=== PATIENT | female | born 1990 | race African-American/Black ===

== ENCOUNTER 2016-11-05 04:59 | Emergency (ER) | payer OTHER, MEDICAID ==
[~2016-11-05] VITALS: Ht 160 cm; Wt 61.0 kg
[2016-11-05 05:01] VITALS: BP 162/82; PULSE 75; RESP 16; TEMP 98.3; O2SAT 100
--- NOTE | 2016-11-05 05:24 | PD ---
HPI Chief Complaint: Chest Pain Time Seen by Provider: 05:11 Travel History International Travel<30 days: No Contact w/Intl Traveler<30days: No Traveled to known affect area: No History of Present Illness HPI To 26 year-old woman who presents to the emergency department complaining of left-sided chest pain. She describes soreness and also her chest, worse when she takes a deep breath, starting tonight while she was sitting down. She states that she's had similar pain several times in the past. She was younger, but has not had it for some time. Previous workups of been negative for it. She otherwise has been feeling generally well. She's not been sick with cough or cold symptoms. She has not on control pills, no recent travel, no history of DVT or PE. She denies any family history of heart disease at a young age. No past medical history. No other complaints. History Past Medical History Medical History: Denies Significant Hx Tetanus Vaccination: Unknown Influenza Vaccination: No LMP: CURRENT Past Surgical History Surgical History: No Previous Surgery Social History Alcohol Use: No Tobacco Use: No Allergies-Medications (Allergen,Severity, Reaction): Coded Allergies: No Known Allergies (Unverified , 11/05/16) Reported Meds & Prescriptions Reported Meds & Active Scripts Active No Active Prescriptions or Reported Medications Review of Systems Except as stated in HPI: all other systems reviewed are Neg Physical Exam Narrative GENERAL: Well-appearing 18 year-old woman, no acute distress. SKIN: Focused skin assessment warm/dry. HEAD: Atraumatic. Normocephalic. CARDIOVASCULAR: Regular rate and rhythm. No murmur appreciated. RESPIRATORY: No accessory muscle use. Clear to auscultation. Breath sounds equal bilaterally. GASTROINTESTINAL: Abdomen soft, non-tender, nondistended. Hepatic and splenic margins not palpable. MUSCULOSKELETAL: No obvious deformities. No clubbing. No cyanosis. No edema. NEUROLOGICAL: Awake and alert. No obvious cranial nerve deficits. Motor grossly within normal limits. Normal speech. PSYCHIATRIC: Appropriate mood and affect; insight and judgment normal. Data Data Last Documented VS Vital Signs Date Time Temp Pulse Resp B/P Pulse Ox O2 Delivery O2 Flow Rate FiO2 11/05/16 06:29 70 18 125/78 100 Room Air 11/05/16 05:01 98.3 Orders Electrocardiogram (11/05/16 05:17) Complete Blood Count With Diff (11/05/16 05:17) Comprehensive Metabolic Panel (11/05/16 05:17) Troponin I (11/05/16 05:17) Ecg Monitoring (11/05/16 05:17) Iv Access Insert/Monitor (11/05/16 05:17) Oximetry (11/05/16 05:17) Oxygen Administration (11/05/16 05:17) Sodium Chloride 0.9% Flush (Ns Flush) (11/05/16 05:30) Chest, Pa & Lat (11/05/16 05:17) Beta Hcg (Quant/Titer) (11/05/16 05:17) Ibuprofen (Motrin) (11/05/16 05:30) Acetaminophen (Tylenol) (11/05/16 05:30) Labs Laboratory Tests Test 11/05/16 05:35 White Blood Count 9.2 TH/MM3 Red Blood Count 3.51 MIL/MM3 Hemoglobin 9.4 GM/DL Hematocrit 29.1 % Mean Corpuscular Volume 82.8 FL Mean Corpuscular Hemoglobin 26.9 PG Mean Corpuscular Hemoglobin 32.4 % Concent Red Cell Distribution Width 18.5 % Platelet Count 387 TH/MM3 Mean Platelet Volume 8.6 FL Neutrophils (%) (Auto) 46.9 % Lymphocytes (%) (Auto) 41.1 % Monocytes (%) (Auto) 10.3 % Eosinophils (%) (Auto) 0.6 % Basophils (%) (Auto) 1.1 % Neutrophils # (Auto) 4.3 TH/MM3 Lymphocytes # (Auto) 3.8 TH/MM3 Monocytes # (Auto) 0.9 TH/MM3 Eosinophils # (Auto) 0.1 TH/MM3 Basophils # (Auto) 0.1 TH/MM3 CBC Comment DIFF FINAL Differential Comment Sodium Level 139 MEQ/L Potassium Level 3.3 MEQ/L Chloride Level 108 MEQ/L Carbon Dioxide Level 23.6 MEQ/L Anion Gap 7 MEQ/L Blood Urea Nitrogen 7 MG/DL Creatinine 0.68 MG/DL Estimat Glomerular Filtration 125 ML/MIN Rate Random Glucose 90 MG/DL Calcium Level 8.5 MG/DL Total Bilirubin 0.3 MG/DL Aspartate Amino Transf 12 U/L (AST/SGOT) Alanine Aminotransferase 15 U/L (ALT/SGPT) Alkaline Phosphatase 61 U/L Troponin I LESS THAN 0.02 NG/ML Total Protein 7.4 GM/DL Albumin 3.7 GM/DL Human Chorionic Gonadotropin, LESS THAN 1 Quant MIU/ML MDM Medical Decision Making Medical Screen Exam Complete: Yes Emergency Medical Condition: Yes Interpretation(s) My review of EKG: Normal sinus rhythm at a rate of 68, normal axis, normal intervals, no acute ischemia. Chest x-ray: No acute cardiopulmonary disease. LABS: CBC remarkable for hemoglobin 9.4. CMP is unremarkable. Troponins negative. HCG is negative. Differential Diagnosis Anxiety, chest wall pain, strain or sprain, PE, ACS, GI, other Narrative Course Medical decision-making 18 year-old woman presents to the emergency Department with left-sided chest pain. Looks well. This is likely musculoskeletal. She may have some component of anxiety. She states she's had similar pains in the past. No recent URI symptoms to suggest pleurisy. Low risk for PE. PERC Negative. No further workup. Recommend x-ray EKG and labs. NSAIDs for pain. Diagnosis Primary Impression: Chest pain Additional Instructions: Take ibuprofen and acetaminophen as needed for pain. Return to the emergency department for any worsening chest pain, trouble breathing, or any other new or worsening symptoms. Med/Other Pt SpecificInfo: No Change to Meds Scripts No Active Prescriptions or Reported Meds Disposition: 01 DISCHARGE HOME Condition: Stable Kenrick Duckworth MD Nov 05, 2016 05:24
[2016-11-05] MEDS ORDERED: SODIUM CHLORIDE 0.9% FLUSH 10 ML FLUSH IVF PRN (05:30)
[2016-11-05] MEDS ORDERED: ACETAMINOPHEN 500 MG CPLT PO ONE (05:30)
[2016-11-05] MEDS ORDERED: IBUPROFEN 400 MG TAB PO ONE (05:30)
--- NOTE | 2016-11-05 05:35 | RADRPT ---
EXAM DATE/TIME: 11/05/2016 05:28 [facility] COMPARISON: No previous studies available for comparison. INDICATIONS : Chest pain. MEDICAL HISTORY : None. SURGICAL HISTORY : None. ENCOUNTER: Initial ACUITY: 1 day PAIN SCORE: 7/10 LOCATION: Bilateral chest FINDINGS: PA and lateral views of the chest. The lungs are clear. Cardiomediastinal silhouette within normal li mits. No evidence of pleural effusion or pneumothorax. CONCLUSION: No acute cardiopulmonary disease identified. Rafal Cheema MD on November 05, 2016 at 5:32 Board Certified Radiologist. This report was verified electronically.
[2016-11-05 05:50] LABS: AUTOMATED NEUTROPHIL # 4.3 TH/MM3 (1.8-7.7); BASOPHIL # 0.1 TH/MM3 (0-0.2); BASOPHIL % 1.1 % (0.0-2.0); EOSINOPHIL # 0.1 TH/MM3 (0-0.4); EOSINOPHIL % 0.6 % (0.0-4.0); HEMATOCRIT 29.1 % (35.0-46.0); HEMO FLAGS DIFF FINAL; LYMPH % 41.1 % (9.0-44.0); LYMPHOCYTE # 3.8 TH/MM3 (1.0-4.8); MEAN CELL VOLUME 82.8 FL (80.0-100.0); MEAN CORPUSCULAR HEMOGLOBIN 26.9 PG (27.0-34.0); MEAN CORPUSCULAR HGB CONC 32.4 % (32.0-36.0); MONO % 10.3 % (0.0-8.0); NEUT % 46.9 % (16.0-70.0); PLATELET COUNT 387 TH/MM3 (150-450); RED BLOOD COUNT 3.51 MIL/MM3 (4.00-5.30); RED CELL DISTRIBUTION WIDTH 18.5 % (11.6-17.2); WHITE BLOOD COUNT 9.2 TH/MM3 (4.0-11.0)
[2016-11-05 05:51] VITALS: BP 136/82; PULSE 63; RESP 18; O2SAT 100
[2016-11-05 06:25] LABS: ANION GAP 7 MEQ/L (5-15); AST (GOT) 12 U/L (15-37); BICARBONATE 23.6 MEQ/L (21.0-32.0); BLOOD UREA NITROGEN 7 MG/DL (7-18); CHLORIDE 108 MEQ/L (98-107); GLOMERULAR FILTRATION RATE 125 ML/MIN (>89); POTASSIUM 3.3 MEQ/L (3.5-5.1); SODIUM (NA) 139 MEQ/L (136-145)
[2016-11-05 06:26] LABS: ALT (GPT) 15 U/L (10-53)
[2016-11-05 06:29] VITALS: BP 125/78; PULSE 70; RESP 18; O2SAT 100
[2016-11-05 06:30] LABS: ALKALINE PHOSPHATASE 61 U/L (45-117); BETA HCG QUANT LESS THAN 1 MIU/ML (0-5); TOTAL BILIRUBIN ADULT 0.3 MG/DL (0.2-1.0)
--- NOTE | 2016-11-05 08:29 | EKG ---
Date Performed: 11/05/2016 Time Performed: 05:36:38 PTAGE: 26 years EKG: Sinus rhythm NONSPECIFIC T-WAVE ABNORMALITY BORDERLINE ECG NO PREVIOUS TRACING DOCTOR: John Cortez Interpretating Date/Time 11/05/2016 08:27:37
== END 2016-11-05 06:49 | disposition home or self-care (01) ==
LOC: NEPC 04:59
DX: R07.9 Chest pain, unspecified (principal)
CPT/HCPCS: 71020; 80053; 84484; 84702; 85025; 93005

== ENCOUNTER 2017-01-26 14:29 | Emergency (ER) | payer MEDICAID, OTHER ==
[~2017-01-26] VITALS: Ht 157.5 cm; Wt 59.0 kg
[2017-01-26] MEDS ORDERED: IOHEXOL 350 MG/ML 10 ML VIAL (for RAD DIAG) IVCONTRAST ONE (14:30)
[2017-01-26 14:31] VITALS: BP 134/86; PULSE 75; RESP 18; TEMP 98.5; O2SAT 98
[2017-01-26] MEDS ORDERED: SODIUM CHLOR 0.9% 1000 ML INJ 1,000 ML IV SCH (15:28)
[2017-01-26] MEDS ORDERED: ONDANSETRON HCL 4 MG/2 ML VIAL IVP ONE (15:30)
[2017-01-26] MEDS ORDERED: HYDROmorphone HCL PF 1 MG/ML VIAL IVS ONE (15:30)
[2017-01-26] MEDS ORDERED: SODIUM CHLORIDE 0.9% FLUSH 10 ML FLUSH IV FLUSH PRN (15:30)
--- NOTE | 2017-01-26 15:35 | PD ---
HPI Chief Complaint: Abdominal Pain Time Seen by Provider: 15:28 Travel History International Travel<30 days: No Contact w/Intl Traveler<30days: No Traveled to known affect area: No History of Present Illness HPI 26 yo F c/o RLQ pain sudden onset four days ago with intermittent pain since then. Crampy pain reported. Anorexia reported. No vomiting. No Fever. No vd/vb. No similar priors. Initially pain was severe and now is more tolerable. LMP 2 weeks prior. PFSH Past Medical History Diminished Hearing: No ?: Not LMP: 12/2016 Social History Alcohol Use: No Tobacco Use: No Substance Use: No Allergies-Medications (Allergen,Severity, Reaction): Coded Allergies: No Known Allergies (Unverified , 01/26/17) Reported Meds & Prescriptions Reported Meds & Active Scripts Active No Active Prescriptions or Reported Medications Review of Systems Except as stated in HPI: all other systems reviewed are Neg Physical Exam Narrative GENERAL: 26 yo F, WNWD, mild distress SKIN: Warm and dry. HEAD: Atraumatic. Normocephalic. EYES: Pupils equal and round. No scleral icterus. No injection or drainage. ENT: No nasal bleeding or discharge. Mucous membranes pink and moist. NECK: Trachea midline. No JVD. CARDIOVASCULAR: Regular rate and rhythm. RESPIRATORY: No accessory muscle use. Clear to auscultation. Breath sounds equal bilaterally. GASTROINTESTINAL: Soft. Minimal TTP RLQ. No rebound. MUSCULOSKELETAL: Extremities without clubbing, cyanosis, or edema. No obvious deformities. NEUROLOGICAL: Awake and alert. No obvious cranial nerve deficits. Motor grossly within normal limits. Five out of 5 muscle strength in the arms and legs. Normal speech. PSYCHIATRIC: Appropriate mood and affect; insight and judgment normal. Data Data Last Documented VS Vital Signs Date Time Temp Pulse Resp B/P (MAP) Pulse Ox O2 Delivery O2 Flow Rate FiO2 01/26/17 16:35 100 01/26/17 14:31 98.5 75 18 Room Air VS reviewed Orders Orders Complete Blood Count With Diff (01/26/17 15:28) Comprehensive Metabolic Panel (01/26/17 15:28) Lipase (01/26/17 15:28) Urinalysis - C+S If Indicated (01/26/17 15:28) Iv Access Insert/Monitor (01/26/17 15:28) Ecg Monitoring (01/26/17 15:28) Oximetry (01/26/17 15:28) Ondansetron Inj (Zofran Inj) (01/26/17 15:30) Sodium Chlor 0.9% 1000 Ml Inj (Ns 1000 M (01/26/17 15:28) Sodium Chloride 0.9% Flush (Ns Flush) (01/26/17 15:30) Hydromorphone Pf Inj (Dilaudid Pf Inj) (01/26/17 15:30) Ed Urine Pregnancytest Poc (01/26/17 15:28) Ct Abd/Pel W Iv Contrast(Rout) (01/26/17 ) Morphine Inj (Morphine Inj) (01/26/17 16:30) Pantoprazole Inj (Protonix Inj) (01/26/17 16:30) Famotidine Inj (Pepcid Inj) (01/26/17 16:30) Al-Mag Hy-Si 40-40-4 Mg/Ml Liq (Mag-Al P (01/26/17 16:30) Lidocaine 2% Viscous (Xylocaine 2% Visco (01/26/17 16:30) Urine Culture (01/26/17 16:05) Labs Laboratory Tests Test 01/26/17 16:05 01/26/17 16:20 Urine Color YELLOW Urine Turbidity HAZY Urine pH 5.5 Urine Specific [place] 1.026 Urine Protein TRACE mg/dL Urine Glucose (UA) NEG mg/dL Urine Ketones 10 mg/dL Urine Occult Blood NEG Urine Nitrite NEG Urine Bilirubin NEG Urine Urobilinogen LESS THAN 2.0 MG/DL Urine Leukocyte Esterase LARGE Urine RBC 4 /hpf Urine WBC 22 /hpf Urine Squamous Epithelial Cells 4 /hpf Urine Amorphous Sediment RARE Urine Mucus MOD /lpf Microscopic Urinalysis Comment CULTURE INDICATED White Blood Count 8.1 TH/MM3 Red Blood Count 4.20 MIL/MM3 Hemoglobin 11.2 GM/DL Hematocrit 34.9 % Mean Corpuscular Volume 83.2 FL Mean Corpuscular Hemoglobin 26.8 PG Mean Corpuscular Hemoglobin Concent 32.2 % Red Cell Distribution Width 20.6 % Platelet Count 385 TH/MM3 Mean Platelet Volume 8.6 FL Neutrophils (%) (Auto) 38.6 % Lymphocytes (%) (Auto) 48.8 % Monocytes (%) (Auto) 10.8 % Eosinophils (%) (Auto) 0.9 % Basophils (%) (Auto) 0.9 % Neutrophils # (Auto) 3.1 TH/MM3 Lymphocytes # (Auto) 3.9 TH/MM3 Monocytes # (Auto) 0.9 TH/MM3 Eosinophils # (Auto) 0.1 TH/MM3 Basophils # (Auto) 0.1 TH/MM3 CBC Comment DIFF FINAL Differential Comment MDM Medical Decision Making Medical Screen Exam Complete: Yes Emergency Medical Condition: Yes Medical Record Reviewed: Yes Differential Diagnosis Constipation, Gastritis, Acute Cholecystitis, Biliary Colic, Pancreatitis, CHACON , Hepatitis, Bowel Obstruction, Cystitis, Mesenteric Ischemia, AAA, Appendicitis , Renal Stone/Hydronephrosis, GERD, perforated viscous Narrative Course Pt to be followed by provider in medical pod. Scripts No Active Prescriptions or Reported Meds Disposition: 01 DISCHARGE HOME Condition: Stable Valentín Michel MD Jan 26, 2017 15:35
[2017-01-26] MEDS ORDERED: ALUMINUM/MAGNESIUM/SIMETH 30 ML CUP PO ONE (16:30)
[2017-01-26] MEDS ORDERED: FAMOTIDINE 20 MG/2 ML VIAL IV PUSH ONE (16:30)
[2017-01-26] MEDS ORDERED: LIDOCAINE VISCOUS 2% SOLN 15 ML UDC PO ONE (16:30)
[2017-01-26] MEDS ORDERED: MORPHINE SULFATE 4 MG/ML INJ IV PUSH ONE (16:30)
[2017-01-26] MEDS ORDERED: PANTOPRAZOLE SODIUM 40 MG VIAL IV PUSH ONE (16:30)
[2017-01-26 16:35] VITALS: O2SAT 100
[2017-01-26 16:39] LABS: AUTOMATED NEUTROPHIL # 3.1 TH/MM3 (1.8-7.7); BASOPHIL # 0.1 TH/MM3 (0-0.2); BASOPHIL % 0.9 % (0.0-2.0); EOSINOPHIL # 0.1 TH/MM3 (0-0.4); EOSINOPHIL % 0.9 % (0.0-4.0); HEMATOCRIT 34.9 % (35.0-46.0); HEMO FLAGS DIFF FINAL; LYMPH % 48.8 % (9.0-44.0); LYMPHOCYTE # 3.9 TH/MM3 (1.0-4.8); MEAN CELL VOLUME 83.2 FL (80.0-100.0); MEAN CORPUSCULAR HEMOGLOBIN 26.8 PG (27.0-34.0); MEAN CORPUSCULAR HGB CONC 32.2 % (32.0-36.0); MONO % 10.8 % (0.0-8.0); NEUT % 38.6 % (16.0-70.0); PLATELET COUNT 385 TH/MM3 (150-450); RED CELL DISTRIBUTION WIDTH 20.6 % (11.6-17.2); WHITE BLOOD COUNT 8.1 TH/MM3 (4.0-11.0)
[2017-01-26 16:48] LABS: BLOOD, URINE NEG (NEG); COMMENT (UR) CULTURE INDICATED; CULTURE IF INDICATED CULTURE INDICATED; GLUCOSE,URINE NEG (NEG); KETONE, URINE 10 mg/dL (NEG); MUCUS URINE MOD /lpf (OCC); NITRITE,URINE NEG (NEG); PH, URINE 5.5 (5.0-8.5); SQUAMOUS EPITHELIAL CELL URINE 4 /hpf (0-5); URINE COLOR YELLOW (YELLW/STRAW)
[2017-01-26 17:00] LABS: ANION GAP 9 MEQ/L (5-15); AST (GOT) 13 U/L (15-37); BICARBONATE 22.9 MEQ/L (21.0-32.0); BLOOD UREA NITROGEN 10 MG/DL (7-18); CHLORIDE 104 MEQ/L (98-107); GLOMERULAR FILTRATION RATE 129 ML/MIN (>89); SODIUM (NA) 136 MEQ/L (136-145)
--- NOTE | 2017-01-26 17:00 | PD ---
Physical Exam Date Seen by Provider: Jan 26, 2017 Time Seen by Provider: 16:59 Narrative 26-year-old female that presents to the ED for evaluation of epigastric pain as well as right lower quadrant pain. Patient was properly examined and was found to have signs and symptoms of unclear etiology at this time. Concerning for appendicitis as well as peptic ulcer disease. Case was initially evaluated by Dr. Joshi and case was signed out to me pending labs and imaging and disposition. Please refer to his note. On my examination patient does appear to have right lower quadrant pain as well was more severe epigastric abdominal pain. No obvious Prater sign noted. Otherwise unremarkable exam. Data Data Last Documented VS Vital Signs Date Time Temp Pulse Resp B/P (MAP) Pulse Ox O2 Delivery O2 Flow Rate FiO2 01/26/17 19:09 68 15 118/68 (85) 100 Room Air 01/26/17 14:31 98.5 Orders Orders Complete Blood Count With Diff (01/26/17 15:28) Comprehensive Metabolic Panel (01/26/17 15:28) Lipase (01/26/17 15:28) Urinalysis - C+S If Indicated (01/26/17 15:28) Iv Access Insert/Monitor (01/26/17 15:28) Ecg Monitoring (01/26/17 15:28) Oximetry (01/26/17 15:28) Ondansetron Inj (Zofran Inj) (01/26/17 15:30) Sodium Chlor 0.9% 1000 Ml Inj (Ns 1000 M (01/26/17 15:28) Sodium Chloride 0.9% Flush (Ns Flush) (01/26/17 15:30) Hydromorphone Pf Inj (Dilaudid Pf Inj) (01/26/17 15:30) Ed Urine Pregnancytest Poc (01/26/17 15:28) Ct Abd/Pel W Iv Contrast(Rout) (01/26/17 ) Morphine Inj (Morphine Inj) (01/26/17 16:30) Pantoprazole Inj (Protonix Inj) (01/26/17 16:30) Famotidine Inj (Pepcid Inj) (01/26/17 16:30) Al-Mag Hy-Si 40-40-4 Mg/Ml Liq (Mag-Al P (01/26/17 16:30) Lidocaine 2% Viscous (Xylocaine 2% Visco (01/26/17 16:30) Urine Culture (01/26/17 16:05) Iohexol 350 Inj (Omnipaque 350 Inj) (01/26/17 14:30) Ceftriaxone Inj (Rocephin Inj) (01/26/17 19:30) Labs Laboratory Tests Test 01/26/17 16:05 01/26/17 16:20 Urine Color YELLOW Urine Turbidity HAZY Urine pH 5.5 Urine Specific [place] 1.026 Urine Protein TRACE mg/dL Urine Glucose (UA) NEG mg/dL Urine Ketones 10 mg/dL Urine Occult Blood NEG Urine Nitrite NEG Urine Bilirubin NEG Urine Urobilinogen LESS THAN 2.0 MG/DL Urine Leukocyte Esterase LARGE Urine RBC 4 /hpf Urine WBC 22 /hpf Urine Squamous Epithelial Cells 4 /hpf Urine Amorphous Sediment RARE Urine Mucus MOD /lpf Microscopic Urinalysis Comment CULTURE INDICATED White Blood Count 8.1 TH/MM3 Red Blood Count 4.20 MIL/MM3 Hemoglobin 11.2 GM/DL Hematocrit 34.9 % Mean Corpuscular Volume 83.2 FL Mean Corpuscular Hemoglobin 26.8 PG Mean Corpuscular Hemoglobin Concent 32.2 % Red Cell Distribution Width 20.6 % Platelet Count 385 TH/MM3 Mean Platelet Volume 8.6 FL Neutrophils (%) (Auto) 38.6 % Lymphocytes (%) (Auto) 48.8 % Monocytes (%) (Auto) 10.8 % Eosinophils (%) (Auto) 0.9 % Basophils (%) (Auto) 0.9 % Neutrophils # (Auto) 3.1 TH/MM3 Lymphocytes # (Auto) 3.9 TH/MM3 Monocytes # (Auto) 0.9 TH/MM3 Eosinophils # (Auto) 0.1 TH/MM3 Basophils # (Auto) 0.1 TH/MM3 CBC Comment DIFF FINAL Differential Comment Blood Urea Nitrogen 10 MG/DL Creatinine 0.66 MG/DL Random Glucose 75 MG/DL Total Protein 8.1 GM/DL Albumin 3.9 GM/DL Calcium Level 8.7 MG/DL Alkaline Phosphatase 63 U/L Aspartate Amino Transf (AST/SGOT) 13 U/L Alanine Aminotransferase (ALT/SGPT) 14 U/L Total Bilirubin 0.3 MG/DL Sodium Level 136 MEQ/L Potassium Level 4.0 MEQ/L Chloride Level 104 MEQ/L Carbon Dioxide Level 22.9 MEQ/L Anion Gap 9 MEQ/L Estimat Glomerular Filtration Rate 129 ML/MIN Lipase 72 U/L [facility] Medical Record Reviewed: Yes Supervised Visit with XU: No Interpretation(s) CBC & BMP Diagram 01/26/17 16:20 Total Protein 8.1, Albumin 3.9, Calcium Level 8.7, Alkaline Phosphatase 63, Aspartate Amino Transf (AST/SGOT) 13 L, Alanine Aminotransferase (ALT/SGPT) 14, Total Bilirubin 0.3 CT abdomen showed a mass about 4 cm on the RLQ musculature felt by radiologist to be possible fibroma. Recomends US and possible biopsy if clinically indicated Lipase WNL UA shows UTI Differential Diagnosis Appendicitis versus peptic ulcer disease versus gastritis versus gallbladder disease versus obstruction versus UTI Narrative Course 26-year-old female that presents to the ED for evaluation of abdominal pain. Patient was initially seen by Dr. Joshi. Please refer to his note. Labs and imaging were ordered. Labs and imaging were essentially unremarkable other for UTI and what appears to be a small mass on the right lower quadrant. Was 4 cm. Case was discussed in my attending Dr León who was made aware of all findings and recommends outpatient follow-up for this mass if needed. Patient at this time does appear to have a UTI and what appears to be gastritis. She will be treated for this with Keflex, Zofran, Protonix, Zantac. Told that if anything worsens she is to come back. See ED if worsening symptoms. Diagnosis Primary Impression: Gastritis Qualified Codes: K29.00 - Acute gastritis without bleeding Additional Impression: RLQ abdominal mass Patient Instructions: General Instructions Additional Instruction: Take medications as prescribed. Drink plenty of fluids. See ED for any worsening symptoms. A follow-up with your primary care doctor for evaluation of this mass to the right lower quadrant. Med/Other Pt SpecificInfo: Prescription(s) given Scripts Cephalexin (Keflex) 500 Mg Cap 500 MG PO Q12H for Infection for 10 Days, #20 CAP 0 Refills Prov: Augusto Gutierrez MD 01/26/17 Ondansetron (Zofran) 4 Mg Tab 4 MG PO Q6HR Y for NAUSEA OR VOMITING, #15 TAB 0 Refills Prov: Augusto Gutierrez MD 01/26/17 Pantoprazole (Protonix) 40 Mg Tab 40 MG PO DAILY for Reflux, #20 TAB 0 Refills Prov: Augusto Gutierrez MD 01/26/17 Ranitidine (Zantac) 150 Mg Tab 150 MG PO BID for Reduce Stomach Acid, #20 TAB 0 Refills Prov: Augusto Gutierrez MD 01/26/17 Disposition: 01 DISCHARGE HOME Condition: Conrado Artis Jan 26, 2017 17:00
[2017-01-26 17:08] LABS: ALKALINE PHOSPHATASE 63 U/L (45-117); ALT (GPT) 14 U/L (10-53); TOTAL BILIRUBIN ADULT 0.3 MG/DL (0.2-1.0)
[2017-01-26 19:09] VITALS: BP 118/68; PULSE 68; RESP 15; O2SAT 100
--- NOTE | 2017-01-26 19:14 | RADRPT ---
EXAM DATE/TIME: 01/26/2017 18:43 [facility] COMPARISON: No previous studies available for comparison. INDICATIONS : Epigastric abdomen pain for four days. IV CONTRAST: 71 cc Omnipaque 350 (iohexol) IV ORAL CONTRAST: No oral contrast ingested. RADIATION DOSE: 9.96 CTDIvol (mGy) MEDICAL HISTORY : None SURGICAL HISTORY : None. ENCOUNTER: Initial ACUITY: 4 - 6 days PAIN SCALE: 7/10 LOCATION: Abdomen TECHNIQUE: Volumetric scanning of the abdomen and pelvis was performed. Using automated exposure control and ad justment of the mA and/or kV according to patient size, radiation dose was kept as low as reasonably achievable to obtain optimal diagnostic quality images. DICOM format image data is available electro nically for review and comparison. FINDINGS: LOWER LUNGS: The visualized lower lungs are clear. LIVER: Homogeneous density without lesion. There is no dilation of the biliary tree. No calcified gallston es. SPLEEN: Normal size without lesion. PANCREAS: Within normal limits. KIDNEYS: Normal in size and shape. There is no mass, stone or hydronephrosis. ADRENAL GLANDS: Within normal limits. VASCULAR: There is no aortic aneurysm. BOWEL/MESENTERY: The stomach, small bowel, and colon demonstrate no acute abnormality. There is no free intraperitone al air or fluid. ABDOMINAL WALL: There is a slightly less than 4 cm soft tissue density mass involving the right lower quadrant anteri or abdominal wall posteriorly abutting the anterior surface of the rectus abdominous musculature. RETROPERITONEUM: There is no lymphadenopathy. BLADDER: No wall thickening or mass. REPRODUCTIVE: Minimal dependent pelvic fluid. INGUINAL: Shotty inguinal nodes MUSCULOSKELETAL: Within normal limits for patient age. CONCLUSION: 4 cm or soft tissue density mass involving the right lower quadrant anterior abdominal wall. This may be a fibroma or other mesenchymal neoplasm. Sonography may be helpful for further characterization a nd may also be useful for guidance if biopsy is to be accomplished. Marcel Miles MD on January 26, 2017 at 19:07 Board Certified Radiologist. This report was verified electronically.
[2017-01-26] MEDS ORDERED: ZANT150T2 PO (19:23)
[2017-01-26] MEDS ORDERED: ZOFR4TAB PO (19:23)
[2017-01-26] MEDS ORDERED: PROT40TA PO (19:23)
[2017-01-26] MEDS ORDERED: CEPH-460 PO (19:24)
[2017-01-26] MEDS ORDERED: cefTRIAXone INJ 1,000 MG in SODIUM CHLORIDE 0.9% INJ 100 ML IV ONE (19:30)
== END 2017-01-26 20:31 | disposition home or self-care (01) ==
LOC: NEPC 14:29
DX: K29.00 Acute gastritis without bleeding (principal); R19.03 Right lower quadrant abdominal swelling, mass and lump
CPT/HCPCS: 74177; 80053; 81001; 83690; 84703; 85025; 87086; 96361; 96374; 96376; 99285; C9113; J0696; J7030; Q9967

== ENCOUNTER 2017-08-31 13:59 | Emergency (ER) | payer SELFPAY ==
[~2017-08-31] VITALS: Ht 157.5 cm; Wt 57.0 kg
[~2017-08-31 13:59] MED LIST: CEPH-460 PO; PROT40TA PO; ZANT150T2 PO; ZOFR4TAB PO
[2017-08-31 14:25] VITALS: BP 136/56; PULSE 81; RESP 17; TEMP 99; O2SAT 100
[2017-08-31] MEDS ORDERED: SODIUM CHLOR 0.9% 1000 ML INJ 1,000 ML IV SCH (16:04)
[2017-08-31] MEDS ORDERED: SODIUM CHLORIDE 0.9% FLUSH 10 ML FLUSH IV FLUSH PRN (16:15)
[2017-08-31] MEDS ORDERED: KETOROLAC TROMETHAMINE 30 MG/ML (IVP) VIAL IV PUSH ONE (16:30)
[2017-08-31 16:35] LABS: AUTOMATED NEUTROPHIL # 4.6 TH/MM3 (1.8-7.7); BASOPHIL % 0.6 % (0.0-2.0); EOSINOPHIL # 0.5 TH/MM3 (0-0.4); EOSINOPHIL % 5.4 % (0.0-4.0); HEMOGLOBIN 12.1 GM/DL (11.6-15.3); LYMPHOCYTE # 2.5 TH/MM3 (1.0-4.8); MEAN CELL VOLUME 89.2 FL (80.0-100.0); MEAN CORPUSCULAR HEMOGLOBIN 30.9 PG (27.0-34.0); MEAN CORPUSCULAR HGB CONC 34.7 % (32.0-36.0); MEAN PLATELET VOLUME 8.5 FL (7.0-11.0); MONOCYTE # 0.8 TH/MM3 (0-0.9); PLATELET COUNT 401 TH/MM3 (150-450); RED BLOOD COUNT 3.92 MIL/MM3 (4.00-5.30); RED CELL DISTRIBUTION WIDTH 18.9 % (11.6-17.2); WHITE BLOOD COUNT 8.4 TH/MM3 (4.0-11.0)
--- NOTE | 2017-08-31 16:42 | PD ---
HPI Chief Complaint: Abdominal Pain Time Seen by Provider: 16:03 Travel History International Travel<30 days: No Contact w/Intl Traveler<30days: No Traveled to known affect area: No History of Present Illness HPI 26-year-old female presents to the emergency department with complaint of right- sided abdominal pain 2 days. Says she normally gets right lower quadrant abdominal pain when she starts her menses and she is currently on her menses. Pain is to the right upper quadrant and right flank area. Denies nausea, vomiting, diarrhea, constipation. Denies fevers. Denies abnormal vaginal discharge, odor. Denies dysuria. Denies history of abdominal surgeries, other than in 2008. Rates pain 01/03. Pain comes and goes. Stabbing in nature when comes. Taken ibuprofen with little relief of pain. No known allergies. No primary care provider. No significant past medical history. Has no other medical complaints. No other modifying factors or associated signs and symptoms. PFSH Past Medical History Medical History: Denies Significant Hx Diminished Hearing: No Tetanus Vaccination: < 5 Years ?: Not LMP: 08/2017 Past Surgical History Section: Yes Social History Alcohol Use: No Tobacco Use: No Substance Use: No Allergies-Medications (Allergen,Severity, Reaction): Coded Allergies: No Known Allergies (Unverified Adverse Reaction, Unknown, 08/31/17) Reported Meds & Prescriptions Reported Meds & Active Scripts Active Ibuprofen 800 Mg Tab 800 Mg PO Q6HR PRN Keflex (Cephalexin) 500 Mg Cap 500 Mg PO Q12H 7 Days Review of Systems Except as stated in HPI: all other systems reviewed are Neg Physical Exam Narrative GENERAL: Well-nourished, well-developed black female patient, in no acute distress; afebrile, nontoxic-appearing SKIN: Warm and dry. HEAD: Atraumatic. Normocephalic. EYES: Pupils equal and round. No scleral icterus. No injection or drainage. ENT: Mucous membranes pink and moist. NECK: Trachea midline. No lymphadenopathy. CARDIOVASCULAR: Regular rate and rhythm. No murmur appreciated. RESPIRATORY: No accessory muscle use. Clear to auscultation. Breath sounds equal bilaterally. GASTROINTESTINAL: Abdomen soft, tenderness on palpation to right upper quadrant and right flank area, nondistended. Bilateral pelvic region nontender to palpation. Hepatic and splenic margins not palpable. No guarding, rigidity, rebound tenderness. PELVIC: Exam done in the presence of a nurse. Speculum exam reveals nonedematous and nonerythematous cervix with dark red, nonodorous discharge. Bimanual exam reveals no palpable masses or adnexa tenderness, no uterine tenderness. No cervical motion tenderness. BACK: No CVA tenderness. MUSCULOSKELETAL: No obvious deformities. No clubbing. No cyanosis. No edema. NEUROLOGICAL: Awake and alert. No obvious cranial nerve deficits. Motor grossly within normal limits. Normal speech. PSYCHIATRIC: Appropriate mood and affect; insight and judgment normal. Data Data Last Documented VS Vital Signs Date Time Temp Pulse Resp B/P (MAP) Pulse Ox O2 Delivery O2 Flow Rate FiO2 08/31/17 14:25 99.0 81 17 136/56 (82) 100 Orders Orders Complete Blood Count With Diff (08/31/17 16:04) Comprehensive Metabolic Panel (08/31/17 16:04) Lipase (08/31/17 16:04) Urinalysis - C+S If Indicated (08/31/17 16:04) Iv Access Insert/Monitor (08/31/17 16:04) Sodium Chlor 0.9% 1000 Ml Inj (Ns 1000 M (08/31/17 16:04) Sodium Chloride 0.9% Flush (Ns Flush) (08/31/17 16:15) Ed Urine Pregnancytest Poc (08/31/17 16:04) Ketorolac Inj (Toradol Inj) (08/31/17 16:30) Gc And Chlamydia Pcr (08/31/17 17:08) Wet Prep Profile (08/31/17 17:08) Urine Culture (08/31/17 17:20) Ceftriaxone Inj (Rocephin Inj) (08/31/17 19:00) Azithromycin Powd Pack (Zithromax Powd P (08/31/17 19:15) Ed Discharge Order (08/31/17 19:01) Metronidazole (Flagyl) (08/31/17 19:15) Labs Laboratory Tests Test 08/31/17 16:15 08/31/17 17:20 08/31/17 17:45 White Blood Count 8.4 TH/MM3 Red Blood Count 3.92 MIL/MM3 Hemoglobin 12.1 GM/DL Hematocrit 35.0 % Mean Corpuscular Volume 89.2 FL Mean Corpuscular Hemoglobin 30.9 PG Mean Corpuscular Hemoglobin Concent 34.7 % Red Cell Distribution Width 18.9 % Platelet Count 401 TH/MM3 Mean Platelet Volume 8.5 FL Neutrophils (%) (Auto) 55.0 % Lymphocytes (%) (Auto) 30.0 % Monocytes (%) (Auto) 9.0 % Eosinophils (%) (Auto) 5.4 % Basophils (%) (Auto) 0.6 % Neutrophils # (Auto) 4.6 TH/MM3 Lymphocytes # (Auto) 2.5 TH/MM3 Monocytes # (Auto) 0.8 TH/MM3 Eosinophils # (Auto) 0.5 TH/MM3 Basophils # (Auto) 0.0 TH/MM3 CBC Comment DIFF FINAL Differential Comment Blood Urea Nitrogen 12 MG/DL Creatinine 0.76 MG/DL Random Glucose 60 MG/DL Total Protein 7.8 GM/DL Albumin 3.5 GM/DL Calcium Level 8.1 MG/DL Alkaline Phosphatase 68 U/L Aspartate Amino Transf (AST/SGOT) 22 U/L Alanine Aminotransferase (ALT/SGPT) 18 U/L Total Bilirubin 0.3 MG/DL Sodium Level 140 MEQ/L Potassium Level 4.5 MEQ/L Chloride Level 109 MEQ/L Carbon Dioxide Level 25.1 MEQ/L Anion Gap 6 MEQ/L Estimat Glomerular Filtration Rate 110 ML/MIN Lipase 89 U/L Urine Color LIGHT-YELLOW Urine Turbidity HAZY Urine pH 6.5 Urine Specific [place] 1.020 Urine Protein NEG mg/dL Urine Glucose (UA) NEG mg/dL Urine Ketones NEG mg/dL Urine Occult Blood LARGE Urine Nitrite NEG Urine Bilirubin NEG Urine Urobilinogen LESS THAN 2.0 MG/DL Urine Leukocyte Esterase LARGE Urine RBC 5 /hpf Urine WBC 23 /hpf Urine Squamous Epithelial Cells 10 /hpf Urine Bacteria OCC /hpf Microscopic Urinalysis Comment CULTURE INDICATED Clue Cells (Wet Prep) NONE SEEN Vaginal Trichomonas (Wet Prep) PRESENT Vaginal Yeast (Wet Prep) NONE SEEN MDM Medical Decision Making Medical Screen Exam Complete: Yes Emergency Medical Condition: Yes Medical Record Reviewed: Yes Differential Diagnosis PID, pyelonephritis, kidney stone, Kareem-HughCurtis syndrome Narrative Course 26-year-old female with right upper abdominal pain/flank pain. She is currently on her menses normally gets right lower quadrant abdominal pain during her menses, but says this pain is different. Dr. phan evaluated the patient and plan of care was discussed. CBC, CMP, lipase, IV, IV fluids, urinalysis, UPT, wet prep, chlamydia, gonorrhea ordered. 173: CBC, CMP, lipase unremarkable. 185: Urinalysis with signs of infection. Reflex to culture. Rocephin 1 g IV ordered. Keflex will be prescribed for home. 185: Trichomonas positive. Clue cells, bacterial yeast negative. With trichomonas being positive, I will empirically treat the patient with a azithromycin and Rocephin and started been ordered for suspected pyelonephritis. Azithromycin, Flagyl 2 g ordered. 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 Community resources provided for follow-up. Keflex, ibuprofen prescribed for home. Instructed patient to follow up with primary care provider. Patient verbalizes understanding and agreement with treatment plan. Patient is medically cleared and stable for discharge. Discussed reasons to return to the emergency department. Patient agrees with treatment plan. The patients vital signs are stable and the patient is stable for outpatient follow-up and treatment. Patient discharged home, stable and in no acute distress. Diagnosis Primary Impression: UTI (urinary tract infection) Qualified Codes: N39.0 - Urinary tract infection, site not specified; R31.9 - Hematuria, unspecified Additional Impression: Trichomoniasis Referrals: Supervisor Advice [facility] for [facility] Primary Care Physician [facility]. Patient Instructions: General Instructions, Trichomoniasis (ED), Urinary Tract Infection in Women (ED) Departure Forms: Tests/Procedures, Work Release Enter return to work date: September 02, 2017 Additional Instructions: Take antibiotics as prescribed and complete full course Drink plenty of fluids Maintain good personal hygiene Follow-up with primary care provider Return to the emergency department immediately with worsening of symptoms Avoid sexual activity for 14 days No sexual activity with your partner/s until they have been treated and waited 14 days Inform all sexual partners within the past 3-6 months that they need to be evaluated and treated Use condoms every time you have sex Follow-up with primary care provider Return to the emergency department immediately with worsening of symptoms Med/Other Pt SpecificInfo: Prescription(s) given Scripts Ibuprofen (Ibuprofen) 800 Mg Tab 800 MG PO Q6HR Y for PAIN, #30 TAB 0 Refills Prov: Jennifer Hills [employer] 5/8/18 Cephalexin (Keflex) 500 Mg Cap 500 MG PO Q12H for Infection for 7 Days, #14 CAP 0 Refills Prov: Jennifer Hills 08/31/17 Disposition: 01 DISCHARGE HOME Condition: Stable Jennifer Hills August 31, 2017 16:42
[2017-08-31 16:56] LABS: ALBUMIN 3.5 GM/DL (3.4-5.0); ALT (GPT) 18 U/L (10-53); AST (GOT) 22 U/L (15-37); BICARBONATE 25.1 MEQ/L (21.0-32.0); BLOOD UREA NITROGEN 12 MG/DL (7-18); CALCIUM 8.1 MG/DL (8.5-10.1); CHLORIDE 109 MEQ/L (98-107); CREATININE 0.76 MG/DL (0.50-1.00); GLOMERULAR FILTRATION RATE 110 ML/MIN (>89); GLUCOSE,RANDOM 60 MG/DL (74-106); SODIUM (NA) 140 MEQ/L (136-145)
[2017-08-31 16:57] LABS: ALKALINE PHOSPHATASE 68 U/L (45-117); TOTAL BILIRUBIN ADULT 0.3 MG/DL (0.2-1.0); TOTAL PROTEIN 7.8 GM/DL (6.4-8.2)
--- NOTE | 2017-08-31 17:30 | PD ---
Data Data Last Documented VS Vital Signs Date Time Temp Pulse Resp B/P (MAP) Pulse Ox O2 Delivery O2 Flow Rate FiO2 08/31/17 14:25 99.0 81 17 136/56 (82) 100 Orders Orders Complete Blood Count With Diff (08/31/17 16:04) Comprehensive Metabolic Panel (08/31/17 16:04) Lipase (08/31/17 16:04) Urinalysis - C+S If Indicated (08/31/17 16:04) Iv Access Insert/Monitor (08/31/17 16:04) Sodium Chlor 0.9% 1000 Ml Inj (Ns 1000 M (08/31/17 16:04) Sodium Chloride 0.9% Flush (Ns Flush) (08/31/17 16:15) Ed Urine Pregnancytest Poc (08/31/17 16:04) Ketorolac Inj (Toradol Inj) (08/31/17 16:30) Gc And Chlamydia Pcr (08/31/17 17:08) Wet Prep Profile (08/31/17 17:08) Labs Laboratory Tests Test 08/31/17 16:15 White Blood Count 8.4 TH/MM3 Red Blood Count 3.92 MIL/MM3 Hemoglobin 12.1 GM/DL Hematocrit 35.0 % Mean Corpuscular Volume 89.2 FL Mean Corpuscular Hemoglobin 30.9 PG Mean Corpuscular Hemoglobin Concent 34.7 % Red Cell Distribution Width 18.9 % Platelet Count 401 TH/MM3 Mean Platelet Volume 8.5 FL Neutrophils (%) (Auto) 55.0 % Lymphocytes (%) (Auto) 30.0 % Monocytes (%) (Auto) 9.0 % Eosinophils (%) (Auto) 5.4 % Basophils (%) (Auto) 0.6 % Neutrophils # (Auto) 4.6 TH/MM3 Lymphocytes # (Auto) 2.5 TH/MM3 Monocytes # (Auto) 0.8 TH/MM3 Eosinophils # (Auto) 0.5 TH/MM3 Basophils # (Auto) 0.0 TH/MM3 CBC Comment DIFF FINAL Differential Comment Blood Urea Nitrogen 12 MG/DL Creatinine 0.76 MG/DL Random Glucose 60 MG/DL Total Protein 7.8 GM/DL Albumin 3.5 GM/DL Calcium Level 8.1 MG/DL Alkaline Phosphatase 68 U/L Aspartate Amino Transf (AST/SGOT) 22 U/L Alanine Aminotransferase (ALT/SGPT) 18 U/L Total Bilirubin 0.3 MG/DL Sodium Level 140 MEQ/L Potassium Level 4.5 MEQ/L Chloride Level 109 MEQ/L Carbon Dioxide Level 25.1 MEQ/L Anion Gap 6 MEQ/L Estimat Glomerular Filtration Rate 110 ML/MIN Lipase 89 U/L MDM Supervised Visit with XU: Yes Narrative Course The history, exam, and medical decision-making in the associated mid-level provider note were completed with my assistance. I reviewed and agree with the findings presented. I attest that I had a [id number] encounter with the patient on the same day, and personally performed and documented my assessment and findings in the medical record. *My assessment and Findings: Sit 26-year-old woman presents emerged from for abdominal pain. She reports of having similar abdominal pain with her menstrual cycle for some time, more right -sided. It is worse today and a little bit higher up. Menstrual cycles about 3 days ago. She is sexually active last had sex about a month ago with male partner. No STD symptoms. No urinary symptoms. Appetites been normal. On exam she has some mild right-sided tenderness to palpation, upper and lower. I do not think she has appendicitis. I do not think she needs imaging for that. Will do a pelvic exam look for evidence of PID or 50s Pee. She otherwise looks very well and can follow-up if her workup is otherwise negative. Scripts No Active Prescriptions or Reported Meds Kenrick Duckworth MD August 31, 2017 17:30
[2017-08-31 18:14] LABS: BACTERIA, URINE OCC /hpf; BILIRUBIN, URINE NEG (NEG); BLOOD, URINE LARGE (NEG); GLUCOSE,URINE NEG (NEG); KETONE, URINE NEG (NEG); NITRITE,URINE NEG (NEG); PH, URINE 6.5 (5.0-8.5); SQUAMOUS EPITHELIAL CELL URINE 10 /hpf (0-5); URINE COLOR LIGHT-YELLOW (YELLW/STRAW); URINE LEUKOCYTE ESTERASE LARGE (NEG)
[2017-08-31] MEDS ORDERED: CEPH-460 PO (18:52)
[2017-08-31] MEDS ORDERED: IBUP1TAB7 PO (18:52)
[2017-08-31] MEDS ORDERED: cefTRIAXone INJ 1,000 MG in SODIUM CHLORIDE 0.9% INJ 100 ML IV ONE (19:00)
[2017-08-31] MEDS ORDERED: metroNIDAZOLE 500 MG TAB PO ONE (19:15)
[2017-08-31] MEDS ORDERED: AZITHROMYCIN PWD FOR SUSP 1 GM PACKET PO ONE (19:15)
== END 2017-08-31 20:05 | disposition home or self-care (01) ==
LOC: NEPD 13:59
DX: N39.0 Urinary tract infection, site not specified (principal); R31.9 Hematuria, unspecified; A59.9 Trichomoniasis, unspecified
CPT/HCPCS: 80053; 81001; 83690; 84703; 85025; 87086; 87210; 87491; 87591; 96361; 96365; 96375; 99284; J0696; J1885; J7030